=== PATIENT | female | born 1975 | race Caucasian/White ===

== ENCOUNTER → 2021-09-17 | Day surgery (SDC) | payer OTHER ==
[~2021-09-17] MED LIST: REYVOW PO; VIIBRYD20 MG PO
== END | disposition home or self-care (01) ==
LOC: OR 07:36
DX: K57.30 Diverticulosis of large intestine without perforation or abscess without bleeding (principal); F17.210 Nicotine dependence, cigarettes, uncomplicated; F41.9 Anxiety disorder, unspecified; F32.A Depression, unspecified; Z79.899 Other long term (current) drug therapy; Z88.5 Allergy status to narcotic agent; Z91.041 Radiographic dye allergy status
CPT/HCPCS: J2704; J7120

== ENCOUNTER → 2021-09-22 | Outpatient (CLI) | payer OTHER | LOC: EMI 10:36 | DX: F44.5 Conversion disorder with seizures or convulsions (principal); G47.50 Parasomnia, unspecified | CPT/HCPCS: 70551 ==